=== PATIENT | male | born 1990 | race African-American/Black ===

== ENCOUNTER 2020-08-18 05:34 | Emergency (ER) | payer OTHER ==
[~2020-08-18] VITALS: Ht 188 cm; Wt 93.0 kg
[2020-08-18 06:43] LABS: Basophils # (auto) 0 10 ^3/uL (0-0.2); Basophils % (auto) 0.9 % (0.0-2.0); Eosinophils # (auto) 0.1 10 ^3/uL (0-0.8); Eosinophils % (auto) 2.4 % (0.0-7.0); Hematocrit 40.6 % (41.0-53.0); Hemoglobin 14.2 g/dL (13.5-17.5); Lymphocytes # (auto) 1.5 10 ^3/uL (0.4-5.4); Lymphocytes % (auto) 29.3 % (10.0-50.0); Mean Corpuscular Hemoglobin 30.6 pg (28.0-32.0); Mean Corpuscular Hgb Conc. 34.9 g/dL (32.0-36.0); Mean Corpuscular Volume 87.5 fL (80.0-100.0); Monocytes # (auto) 0.6 10 ^3/uL (0-1.3); Monocytes % (auto) 11.5 % (0.0-12.0); Neutrophils # (auto) 2.8 10 ^3/uL (1.6-8.6); Neutrophils % (auto) 55.9 % (37.0-80.0); Nucleated Red Blood Cells % 0.2 %; Platelet Count (auto) 218 10^3/uL (140-450); Red Blood Cells 4.64 10^6/uL (4.5-5.90); Red Cell Distribution Width 12.8 % (11.8-14.3)
[2020-08-18 07:03] LABS: Albumin 4.2 g/dL (3.4-5.0); Anion Gap 9 (5-15); Blood Urea Nitrogen 8 mg/dL (7-18); Calcium 8.4 mg/dL (8.5-10.1); Carbon Dioxide 25 mmol/L (21-32); Chloride 105 mmol/L (98-107); Glucose 100 mg/dL (74-106); Potassium 3.9 mmol/L (3.5-5.1); Sodium 139 mmol/L (136-145)
[2020-08-18 07:08] LABS: Alanine Aminotransferase 19 U/L (16-61); Alkaline Phosphatase 56 U/L (45-117); Aspartate Aminotransferase 25 U/L (15-37); BUN/Creatinine Ratio 7.6; GFR African American 106 mL/min; GFR Non-African American 88 mL/min; Total Protein 7.6 g/dL (6.4-8.2)
[2020-08-18] MEDS ORDERED: ASPirin 81 mg TAB PO ONE (07:15)
[2020-08-18 08:26] VITALS: BP 119/58
== END 2020-08-18 09:35 | disposition home or self-care (01) ==
LOC: ER 05:34
DX: R07.89 Other chest pain (principal)
CPT/HCPCS: 36415; 71045; 80053; 84484; 85025; 85049; 93005

== ENCOUNTER 2023-07-02 09:43 | Emergency (ER) | payer MEDICAID, OTHER ==
[~2023-07-02] VITALS: Ht 188 cm; Wt 95.7 kg
[2023-07-02 09:43] VITALS: BP 127/80; PULSE 74; RESP 18; O2SAT 97
== END 2023-07-02 11:14 | disposition left against medical advice (07) ==
LOC: ER 09:43
DX: F41.9 Anxiety disorder, unspecified (principal); Z53.21 Procedure and treatment not carried out due to patient leaving prior to being seen by health care provider